=== PATIENT | male | born 1950 | race Caucasian/White ===

== ENCOUNTER → 2017-12-22 | Outpatient (CLI) | payer OTHER | LOC: FIMAGING 09:10 → EDSTATUS 09:11 | PROVIDERS: ATTEND Family Medicine | DX: M25.531 Pain in right wrist (principal) ==

== ENCOUNTER 2019-01-24 06:59 | Inpatient (IN) | payer OTHER ==
--- NOTE | 2019-01-24 07:05 | EDPHY ---
H & P Time Seen by Provider: 01/24/19 07:05 HPI/ROS: CHIEF COMPLAINT: Chest tightness HISTORY OF PRESENT ILLNESS: 68-year-old man had a history of coronary artery bypass grafting 12 years ago. Last Thursday he went to [place] in [facility] and felt chest tightness and indigestion walking up hill. No symptoms over the weekend and then this morning at 5:00 a.m. He did a little light exercise with dancing and noticed chest tightness across the anterior portion of his chest which resolved immediately when he stops moving. He tried again and the symptoms reoccurred and he stopped and they went away. On walking in from the car to the ED he noticed the symptoms of chest tightness reoccurred and right now they are almost gone. Not associated with radiation or neck or jaw or back pain or shortness of breath or nausea or vomiting. REVIEW OF SYSTEMS: Eye: no change in vision ENT: no sore throat Cardiac: HPI Pulmonary: Chronic cough after blood pressure medication many years ago Abdomen: no vomiting, diarrhea, abdominal pain Musculoskeletal: no back pain Skin: no rash Neuro: no headache Constitutional: no fever : no urinary symptoms A comprehensive 10 point review of systems is otherwise negative aside from elements mentioned in the history of present illness. PAST MEDICAL HISTORY: Appendectomy, coronary artery bypass grafting Social history: [facility] General Appearance: Alert and conversant, cooperative. Eyes: No scleral icterus. ENT, Mouth: Normal mucous membranes. Respiratory: Normal respiratory effort, breath sounds equal, lungs are clear to auscultation. Cardiovascular: Regular rate and rhythm. No murmur. Gastrointestinal: Abdomen is soft and non tender. Neurological: Alert, face symmetric, normal motor and sensory in extremities. Skin: Warm and dry, no rashes. Musculoskeletal: No peripheral edema. No calf tenderness. Psychiatric: Not agitated. Emergency Department course/MDM: 12-lead EKG interpreted by me; official reading is in computer system. My interpretation is sinus rhythm rate [address]-elevation in lead 3 only with inverted T-waves in leads 1 and aVL. Plan for troponin, he took an oral 324 aspirin this morning, cardiology consultation. High suspicion for ACS. Differential diagnosis considered for chest pain including but not limited to myocardial ischemia, aortic dissection, pericarditis, pulmonary embolus, chest wall pain, pleural inflammation and pulmonary infectious causes. Discussed with Carlos for cardiology 735am including EKG and troponin elevated to 0.38; Requests NTG and heparin. Nitroglycerin and heparin drips started in the emergency department. 848: Adal and cath team here to evaluate patient. Smoking Status: Never smoked Constitutional: Initial Vital Signs Temperature (C) 36.4 C 01/24/19 07:02 Heart Rate 52 L 01/24/19 07:02 Respiratory Rate 18 01/24/19 07:02 Blood Pressure 174/83 H 01/24/19 07:02 O2 Sat (%) 95 01/24/19 07:02 O2 Delivery Mode Room Air Allergies/Adverse Reactions: amlodipine [From [facility]] Allergy (Verified 01/24/19 08:37) whole body rash amoxicillin Allergy (Verified 01/24/19 08:37) whole body rash Home Medications: Medication Instructions Recorded Aspirin [Aspirin 81mg (*)] 81 mg PO DAILY 01/24/19 Dutasteride [Avodart 0.5 MG (*)] 0.5 mg PO DAILY 01/24/19 Herbals/Supplements -Info Only 1 ea PO DAILY 01/24/19 Losartan Potassium [Cozaar 25 mg 25 mg PO DAILY 01/24/19 (*)] Metoprolol Tartrate [Lopressor 25 25 mg PO DAILY 01/24/19 mg (*)] Medical Decision Making - Diagnostics Imaging Results: Imaging Impressions Chest X-Ray 01/24/19 07:15 Impression: Clear lungs. No acute process. Chest x-ray personally interpreted shows sternal wires consistent with previous bypass otherwise negative acute. Imaging: I viewed and interpreted images myself Differential Diagnosis: Differential diagnosis considered for chest tightness including but not limited to myocardial ischemia, aortic dissection, pericarditis, pulmonary embolus, chest wall pain, pleural inflammation and pulmonary infectious causes. Consult/Admit Bed Type: [facility] Carlos 736 Critical Care Time: Critical care time spent by me, Dr. Easley, exclusively with the care of this patient was 30 minutes, exclusive of PA or BAND CUTTER time and exclusive of separate procedures. The organ system at risk was cardiovascular and I ordered specialist consultation, multiple diagnostics, IV heparin and nitroglycerin to stabilize the patient and prevent worsening of the patient's condition. - Data Points Laboratory Results: Laboratory Results 01/24/19 07:15 01/24/19 07:15 01/24/19 01/24/19 01/24/19 07:22 07:15 07:15 WBC RBC Hgb Hct MCV MCH MCHC RDW Plt Count MPV Neut % (Auto) Lymph % (Auto) [place] % (Auto) Eos % (Auto) Baso % (Auto) Nucleat RBC Rel Count Absolute Neuts (auto) Absolute Lymphs (auto) Absolute Monos (auto) Absolute Eos (auto) Absolute Basos (auto) Absolute Nucleated RBC Immature Gran % Immature Gran # Heparin Anti-Xa, Unfract Pending Sodium 139 mEq/L mEq/L (135-145) Potassium 4.6 mEq/L mEq/L (3.5-5.2) Chloride 105 mEq/L mEq/L (97-110) Carbon Dioxide 26 mEq/l mEq/l (22-31) Anion Gap 8 mEq/L mEq/L (6-14) BUN 21 mg/dL mg/dL (7-23) Creatinine 0.9 mg/dL mg/dL (0.7-1.3) Estimated GFR > 60 Glucose 102 mg/dL H mg/dL (70-100) Calcium 9.4 mg/dL mg/dL (8.5-10.4) POC Troponin I 0.38 ng/mL H ng/mL (0.00-0.08) 01/24/19 07:15 WBC 6.68 10^3/uL 10^3/uL (3.80-9.50) RBC 5.18 10^6/uL 10^6/uL (4.40-6.38) Hgb 16.7 g/dL g/dL (13.7-17.5) Hct 47.8 % % (40.0-51.0) MCV 92.3 fL fL (81.5-99.8) MCH 32.2 pg pg (27.9-34.1) MCHC 34.9 g/dL g/dL (32.4-36.7) RDW 12.6 % % (11.5-15.2) Plt Count 194 10^3/uL 10^3/uL (150-400) MPV 9.5 fL fL (8.7-11.7) Neut % (Auto) 54.0 % % (39.3-74.2) Lymph % (Auto) 29.6 % % (15.0-45.0) [place] % (Auto) 13.0 % % (4.5-13.0) Eos % (Auto) 2.2 % % (0.6-7.6) Baso % (Auto) 0.6 % % (0.3-1.7) Nucleat RBC Rel Count 0.0 % % (0.0-0.2) Absolute Neuts (auto) 3.60 10^3/uL 10^3/uL (1.70-6.50) Absolute Lymphs (auto) 1.98 10^3/uL 10^3/uL (1.00-3.00) Absolute Monos (auto) 0.87 10^3/uL H 10^3/uL (0.30-0.80) Absolute Eos (auto) 0.15 10^3/uL 10^3/uL (0.03-0.40) Absolute Basos (auto) 0.04 10^3/uL 10^3/uL (0.02-0.10) Absolute Nucleated RBC 0.00 10^3/uL 10^3/uL (0-0.01) Immature Gran % 0.6 % % (0.0-1.1) Immature Gran # 0.04 10^3/uL 10^3/uL (0.00-0.10) Heparin Anti-Xa, Unfract Sodium Potassium Chloride Carbon Dioxide Anion Gap BUN Creatinine Estimated GFR Glucose Calcium POC Troponin I Medications Given: Discontinued Medications Heparin Sodium (Porcine) (Heparin Injection) 0 unit IVP EDNOW ONE Stop: 01/24/19 07:39 Last Admin: 01/24/19 07:57 Dose: 4,000 unit Heparin Sodium (Porcine) (Heparin 50 Units/Ml (Premix)) 500 mls @ 0 mls/hr IV EDNOW ONE; Per Protocol PRN Reason: Protocol Stop: 01/24/19 07:39 Last Admin: 01/24/19 07:56 Dose: 500 mls Nitroglycerin/Dextrose (Nitroglycerin 200 Mcg/Ml (Premix)) 250 mls @ 0 mls/hr IV CONT ONE; Titrate PRN Reason: Protocol Stop: 01/24/19 07:38 Last Admin: 01/24/19 08:00 Dose: 250 mls Point of Care Test Results: Chemistry 01/24/19 07:22 POC Troponin I 0.38 ng/mL H ng/mL (0.00-0.08) Departure - Departure Disposition: [facility] Clinical Impression: Acute coronary syndrome Condition: Serious
--- NOTE | 2019-01-24 07:15 | CPEKG ---
Test Reason : OPEN Blood Pressure : / mmHG Vent. Rate : 050 BPM Atrial Rate : 050 BPM P-R Int : 210 ms QRS Dur : 090 ms QT Int : 439 ms P-R-T Axes : 022 032 108 degrees QTc Int : 401 ms Sinus rhythm Repol abnrm suggests ischemia, lateral leads Borderline ST elevation, inferior leads Confirmed by Gus Easley ([id number]) on 01/24/2019 7:15:27 AM Referred By: Gus Easley Confirmed By:Gus Easley
[2019-01-24 07:29] LABS: PLATELET COUNT 194 10^3/uL (150-400)
[2019-01-24] MEDS ORDERED: HEPARIN/DEXTROSE 25,000 UNIT/500 ML BAG ONE (07:37)
[2019-01-24] MEDS ORDERED: NITROGLYCERIN/DEXTROSE 250 ML IV ONE (07:37)
[2019-01-24] MEDS ORDERED: HEPARIN/DEXTROSE 500 ML IV ONE (07:38)
[2019-01-24] MEDS ORDERED: HEPARIN 10,000 UNIT/10 ML MDV (1,000 UNIT/ML) IVP ONE (07:38)
[2019-01-24] MEDS ORDERED: HEPARIN 10,000 UNIT/10 ML MDV (1,000 UNIT/ML) IVP PRN (08:40)
[2019-01-24] MEDS ORDERED: HEPARIN/DEXTROSE 500 ML IV SCH (08:45)
[2019-01-24] MEDS ORDERED: fentaNYL 100 MCG/2 ML INJ ONE (08:53)
[2019-01-24] MEDS ORDERED: MIDAZOLAM 2 MG/2 ML VIAL ONE (08:53)
[2019-01-24] MEDS ORDERED: ACETAMINOPHEN 325 MG TAB PO PRN (08:54)
[2019-01-24] MEDS ORDERED: ONDANSETRON 4 MG/2 ML VIAL IVP PRN (08:54)
[2019-01-24] MEDS ORDERED: LIDOCAINE 1% 300 MG/30 ML SDV ONE (08:59)
[2019-01-24] MEDS ORDERED: NITROGLYCERIN/DEXTROSE 250 ML IV SCH (09:00)
[2019-01-24] MEDS ORDERED: METOPROLOL TARTRATE 25 MG TAB PO SCH (09:00)
[2019-01-24] MEDS ORDERED: HEPARIN 10,000 UNIT/10 ML MDV (1,000 UNIT/ML) ONE (09:22)
[2019-01-24] MEDS ORDERED: IOPAMIDOL (ISOVUE 370) 100 ML BTL IV ONE ×3 (09:35→10:12)
[2019-01-24] MEDS ORDERED: BIVALIRUDIN 250 MG/5 ML VIAL IV ONE (09:49)
[2019-01-24] MEDS ORDERED: NITROGLYCERIN 1,500 MCG/15 ML VIAL MISC ONE (10:02)
[2019-01-24] MEDS ORDERED: CLOPIDOGREL BISULFATE 75 MG TAB ONE (10:29)
[2019-01-24] MEDS ORDERED: CLOPIDOGREL BISULFATE 75 MG TAB PO ONE (10:41)
[2019-01-24] MEDS ORDERED: ATROPINE SULFATE 1 MG/10 ML SYR IVP PRN (10:41)
[2019-01-24] MEDS ORDERED: NS 1,000 ML IV SCH (10:45)
--- NOTE | 2019-01-24 10:49 | PDCARCONS ---
Cardiology Consult Reason for Consult: Acute coronary syndrome Chief Complaint: Chest tightness Requesting Physician: shelbie History of Present Illness: 68-year-old male history of coronary disease status post bypass grafting in 2006. Coronary angiogram done several months after initial bypass surgery showed patent mammary artery to the LAD and a patent skip graft to the diagonal and distal right coronary with proximal RCA graft disease. He has been treated medically since that time. 1 month ago he had an episode of myalgias. His statin was stopped. 2 weeks ago he began experiencing exertional chest tightness. This initially occurred with hiking. Began to increase in frequency at lower workload. This morning he had discomfort with gentle walking. He came to the emergency department. Initial EKG showed ST elevation inferior lead associated with an elevation in troponin. The patient was pain- free. I am asked to comment on further evaluation and treatment. Baseline EKG today showed sinus rhythm at 50 beats per minute. There is borderline ST elevation 2 3 and AVF with reciprocal ST depression 1 in aVL. On my arrival the patient is currently pain-free. He denies PND orthopnea. He has had no palpitations syncope or near syncope. Risk include hyperlipidemia and hypertension History Information - Allergies/Home Medication List Allergies/Adverse Reactions: amlodipine [From [facility]] Allergy (Verified 01/24/19 08:37) whole body rash amoxicillin Allergy (Verified 01/24/19 08:37) whole body rash Home Medications: Aspirin [Aspirin 81mg (*)] 81 mg PO DAILY 01/24/19 [Last Taken 01/24/19 06:00 324mg] Dutasteride [Avodart 0.5 MG (*)] 0.5 mg PO DAILY 01/24/19 [Last Taken 01/24/19] Herbals/Supplements -Info Only 1 ea PO DAILY 01/24/19 [Last Taken Unknown] Losartan Potassium [Cozaar 25 mg (*)] 25 mg PO DAILY 01/24/19 [Last Taken ] Metoprolol Tartrate [Lopressor 25 mg (*)] 25 mg PO DAILY 01/24/19 [Last Taken ] I have personally reviewed and updated: family history, medical history, social history, surgical history Past Medical History: - Past Medical History coronary artery disease, hypertension, hyperlipidemia - Surgical History Reports: coronary bypass surgery - Family History Positive for: non-pertinent - Social History Smoking Status: Never smoked Cardiac History - Cardiac History Cardiac Risk Factors: hypertension (>140/90), lipidemia Timing/Duration: Days Severity: moderate Severity Scale: 8 Location: substernal Activities at Onset: activity Modifying Factors: improves with: rest MICHAELA Risk Evaluation age greater or equal to 65: yes greater or equal to 3 CAD risk factors: yes known CAD(stenosis greater or eqaul to 50%): yes ASA use in past 7 days: yes severe angina(greater or equal to 2 episodes in 24hrs): yes EKG ST changes greater or equal to 0.5mm: yes positive cardiac marker: yes Total Score: 8 Physical Exam Physical Exam: Temp Pulse Resp BP Pulse Ox 36.8 C 53 L 14 147/76 H 95 01/24/19 08:54 01/24/19 08:54 01/24/19 08:54 01/24/19 08:54 01/24/19 08:54 Constitutional: no apparent distress Eyes: PERRL Ears, Nose, Mouth, Throat: moist mucous membranes Cardiovascular: regular rate and rhythym, no murmur, rub, or gallop, No systolic murmur, No diastolic murmur Peripheral Pulses: 1+: carotid (R), 2+: femoral (R), femoral (L) Respiratory: no respiratory distress, no rales or rhonchi Gastrointestinal: normoactive bowel sounds, soft, non-tender abdomen, no palpable masses Genitourinary: no bladder tenderness Skin: warm, normal color, No rash Musculoskeletal: full muscle strength Neurologic: AAOx3, No facial droop Psychiatric: interacting appropriately Lymph, Heme, Immunologic: no cervical LAD, no supraclavicular LAD Lab and Imaging 01/24/19 07:15 01/24/19 07:15 WBC 6.68 10^3/uL (3.80-9.50) 01/24/19 07:15 RBC 5.18 10^6/uL (4.40-6.38) 01/24/19 07:15 Hgb 16.7 g/dL (13.7-17.5) 01/24/19 07:15 Hct 47.8 % (40.0-51.0) 01/24/19 07:15 MCV 92.3 fL (81.5-99.8) 01/24/19 07:15 MCH 32.2 pg (27.9-34.1) 01/24/19 07:15 MCHC 34.9 g/dL (32.4-36.7) 01/24/19 07:15 RDW 12.6 % (11.5-15.2) 01/24/19 07:15 Plt Count 194 10^3/uL (150-400) 01/24/19 07:15 MPV 9.5 fL (8.7-11.7) 01/24/19 07:15 Neut % (Auto) 54.0 % (39.3-74.2) 01/24/19 07:15 Lymph % (Auto) 29.6 % (15.0-45.0) 01/24/19 07:15 [place] % (Auto) 13.0 % (4.5-13.0) 01/24/19 07:15 Eos % (Auto) 2.2 % (0.6-7.6) 01/24/19 07:15 Baso % (Auto) 0.6 % (0.3-1.7) 01/24/19 07:15 Nucleat RBC Rel Count 0.0 % (0.0-0.2) 01/24/19 07:15 Absolute Neuts (auto) 3.60 10^3/uL (1.70-6.50) 01/24/19 07:15 Absolute Lymphs (auto) 1.98 10^3/uL (1.00-3.00) 01/24/19 07:15 Absolute Monos (auto) 0.87 10^3/uL (0.30-0.80) H 01/24/19 07:15 Absolute Eos (auto) 0.15 10^3/uL (0.03-0.40) 01/24/19 07:15 Absolute Basos (auto) 0.04 10^3/uL (0.02-0.10) 01/24/19 07:15 Absolute Nucleated RBC 0.00 10^3/uL (0-0.01) 01/24/19 07:15 Immature Gran % 0.6 % (0.0-1.1) 01/24/19 07:15 Immature Gran # 0.04 10^3/uL (0.00-0.10) 01/24/19 07:15 Heparin Anti-Xa, Unfract < 0.10 IU/mL (0.32-0.67) L 01/24/19 07:15 Sodium 139 mEq/L (135-145) 01/24/19 07:15 Potassium 4.6 mEq/L (3.5-5.2) 01/24/19 07:15 Chloride 105 mEq/L (97-110) 01/24/19 07:15 Carbon Dioxide 26 mEq/l (22-31) 01/24/19 07:15 Anion Gap 8 mEq/L (6-14) 01/24/19 07:15 BUN 21 mg/dL (7-23) 01/24/19 07:15 Creatinine 0.9 mg/dL (0.7-1.3) 01/24/19 07:15 Estimated GFR > 60 01/24/19 07:15 Glucose 102 mg/dL (70-100) H 01/24/19 07:15 Calcium 9.4 mg/dL (8.5-10.4) 01/24/19 07:15 POC Troponin I 0.38 ng/mL (0.00-0.08) H 01/24/19 07:22 EKG Interpretation: Positive for: ST elevation A/P Assessment: 68year-old male known coronary disease history of bypass grafting in 2006, clear history of crescendo unstable angina now with ST elevation 2 3 and AVF with reciprocal ST depression in 1 aVL consistent with an acute coronary syndrome. Patient is currently pain-free on heparin. Troponin is elevated supporting diagnosis. Patient is currently stable without heart failure symptoms. He has stable vital signs. Recommendations are for urgent diagnostic angiogram with potential intervention. Suspect inferior or lateral wall as culprit. Will need to readdress secondary prevention. This would include aggressive statin therapy on top of his current beta-ezio and ARB. Continue aspirin. Clinical follow-up post diagnostic angiogram. Plan: Angiography with possible intervention. Review of Systems Review of Systems: - Review of Systems Constitutional: no symptoms reported EENTM: no symptoms reported Respiratory: no symptoms reported Cardiac: chest pain. denies: edema, irregular heart rate, lightheadedness, palpitations, syncope Gastrointestinal/Abdominal: no symptoms reported Genitourinary: no symptoms Musculoskelatal: no symptoms Skin: no symptoms Neurological: no symptoms Hematologic/Lymphatic: no symptoms reported Immunologic/allergic: no symptoms reported
--- NOTE | 2019-01-24 10:58 | PDDXCAT ---
Diagnostic Cath Note - . Date: 01/24/19 Service Delivery Consultant: Adal Indication: other (STEMI) - Procedure Access: right groin Procedure: left heart catheterization, coronary angiography, left ventriculogram , vein graft injection, DUNBAR injection - Materials Left Heart Cath size: 6F Left Heart Cath materials: standard multipack (JL4, JR4, pigtail), other (LCB) - Findings-Left Heart Catheterization LM: Unobstructed LAD: 100% occluded LCX: Diffuse proximal irregularities of up to 50%. Obtuse marginal branch that bifurcates. Distal limb subtotal stenosis with MICHAELA grade 2 flow. Proximal limb is tented with antegrade flow. AV groove portion widely patent with left- to-right filling of the distal right coronary RCA: 100% occluded rSVG: Widely patent to the diagonal DUNBAR: Widely patent to the LAD EDP: 18 mm of mercury post PCI LVEF: 70% Wall motion: No regional wall motion abnormalities. Complications: Ventricular fibrillation with injection of the saphenous vein graft. Estimated blood loss: <50ml Closure method: Angioseal Assessment: Severe [place] 3 vessel coronary artery disease. Patent mammary artery to the LAD. Patent vein graft to the diagonal. Progressive vein graft disease with occlusion of the vein graft to the distal right coronary. Acute coronary syndrome with critical stenosis of the lower limb of the obtuse marginal branch with MICHAELA grade 2 flow. Preserved LV systolic function post PCI. Plan: Emergency PCI. Intervention: Procedure: Cardioversion for polymorphic VT. PCI and stenting of the obtuse marginal branch. During the diagnostic angiogram saphenous vein graft to the diagonal was injected. Patient developed torsade. Brief CPR was performed with delivery of a single shock restoring sinus rhythm. After completion of the diagnostic procedure elected to proceed with urgent PCI. Patient was anticoagulated with Angiomax. Therapeutic ACT was confirmed. Using a 6 Chinese EBU 3.5 guiding catheter left main coronary selectively intubated. Guiding shots were performed. Using a 0.014 luge wire the circumflex artery was entered the wire placed in the distal limb of the obtuse marginal branch. Initial predilatation of the lesion was performed with a 2 mm balloon x2. Repeat angiogram showed MICHAELA grade 3 flow. Elected proceed with stenting. A 2.25 by 20 mm synergy stent was placed across the lesion. Position was confirmed. The stent was deployed using a single inflation. Stent balloon was used to post dilate the stent. Repeat angiograms revealed MICHAELA grade 0-1 flow. Patient was administered intracoronary nitroglycerin. There was re-establishment of MICHAELA grade 3 flow. Was elective seated with a proximal stent covering the entire body of the circumflex. A 2.5 x 32 mm synergy was placed. Overlapping the distal stent edges. Stent was deployed using a single inflation. Repeat angiogram showed MICHAELA grade 3 flow. Attempts were made to post dilate the stent with a 3 mm noncompliant balloon. The stent would not go distally. Danis wires were used including a Mailman and a Prowater J. The balloon would not cross. Both wires prolapsed out of the coronary. The stent was rewired with the Prowater J-wire. The 3.0 noncompliant balloon then easily crossed 2 inflations were performed fully post dilating the stent. Repeat angiogram showed MICHAELA grade 3 flow. The wires were withdrawn. Left ventricular angiography was performed. The sheath was removed with an Angio-Seal. Pressure dressings applied the patient is taken to recovery for continued care. On discharge from the microbiology laboratory manager he was pain-free. Conclusions: Acute coronary syndrome associated with ST elevation in the inferior lateral leads status post successful PCI and stenting of the obtuse marginal branch. Preserved LV systolic function with severe progressive three-vessel coronary artery disease Recommend aggressive secondary prevention goal LDL cholesterol less than 70 mg/ dL. Continue dual antiplatelet therapy. Beta-ezio, ARB, high-dose statin. Patient Problems: Problems Problem Status Onset Acute coronary syndrome Acute
[2019-01-24] MEDS: ASPIRIN 81 MG CHEWABLE TAB PO SCH (11:49)
[2019-01-24 13:06] LABS: CREATINE KINASE 141 IU/L (0-224)
[2019-01-24] MEDS: DUTASTERIDE 0.5 MG CAP PO SCH (13:36)
[2019-01-24] MEDS: LOSARTAN POTASSIUM 25 MG TAB PO SCH (13:37)
--- NOTE | 2019-01-24 14:18 | PDMN ---
Medical Necessity Medical necessity: MCG M230 AR, 2 days: 77 yo w/ chest discomfort, eval reveals STEMI w/ elevated troponin. Urgent heart cath shows severe [place] 3 vessel CAD. Admit IP status.
--- NOTE | 2019-01-24 14:44 | GHP ---
[f rep st] HISTORY AND PHYSICAL DATE OF ADMISSION: 01/24/2019 CHIEF COMPLAINT: Chest pain. HISTORY: Sal is a 68-year-old male with a history of coronary artery disease, status post CABG i n 2006. Last week, he was hiking. When going up a hill, he noticed some chest tightness. This reso lved with rest. He had recurrence of chest pain this morning approximately 5:00 am. This was while he was working out. Onset with exertion, better with rest. Just coming into the ER walking to the c ar, he noticed recurrence of chest pain with exertion. Still relieved with rest. He denies any rest pain. I am seeing him post cardiac catheterization. He was found to have ST-elevation in the emerg ency room. Was brought to [facility] where a stent was placed to the obtuse marginal. Post-procedural ly, he is doing well with no chest pain. Currently lying flat per protocol. PAST MEDICAL HISTORY: 1. Coronary disease, status post CABG 2006. 2. Hypertension. 3. Hyperlipidemia. 4. BPH. PAST SURGICAL HISTORY: Appendectomy. MEDICATIONS: Please see computerized record for full detailed list. ALLERGIES: To amlodipine amoxicillin and Lipitor recently caused muscle pain and weakness and was ju st stopped 2 weeks ago. SOCIAL HISTORY: No smoking. No alcohol. He lives with his . He is a retired officer. REVIEW OF SYSTEMS: Complete review of systems obtained. Review of systems negative regarding consti tutional, HEENT, GI, pulmonary, cardiovascular, , hematology, skin, muscle, endocrine, psych except for positives as in HPI. FAMILY HISTORY: Positive in his father. His father developed angina in his 40s. Had a massive MN a t age 69. PHYSICAL EXAMINATION: GENERAL: Well-developed, well-nourished male, in no acute distress. VITAL SI GNS: Temperature is 36.4, pulse 49, blood pressure 168/82, saturating 95% on room air. HEENT: Eye examination normal conjunctivae. Pupils react to light. ENT: Normal ears and nose. Hearing intact. Normal teeth. Oropharynx moist. NECK: Trachea midline. No thyromegaly. CHEST: Normal. LUNGS: Clear to auscultation bilaterally. CARDIOVASCULAR: Regular rate and rhythm. No murmur. No extre mity edema. ABDOMEN: Soft, nontender. No hepatosplenomegaly. SKIN: Warm, dry, intact. No rash. MUSCULOSKELETAL: No cyanosis or clubbing. Strength 5/5, upper and lower extremities. NEUROLOGIC: Cranial nerves intact. Normal sensation to light touch. PSYCH: Alert and oriented x3. Normal aff ect. Normal judgment. Normal memory. LABORATORY DATA: White count 6.68, hematocrit 47.8, platelets 194. Sodium 139, potassium 4.6, chlor stephen 105, bicarb 26, BUN 21, creatinine 0.9. Glucose 102, troponin 0.38. EKG viewed by me. My perso nal interpretation is ST-elevation in 3 and AVF. Chest x-ray is negative. ASSESSMENT/PLAN: 1. ST-elevation MN status post cardiac catheterization. He received a stent to the OM branch. He w ill need dual anti-platelet therapy with aspirin, Plavix for 1 year. 2. Hyperlipidemia. His Lipitor was recently stopped due to myalgias and muscle weakness. These sym ptoms resolved within days of stopping the Lipitor. He is willing to try an alternative statin drug. Dr. Galeas has started pravastatin. 3. Hypertension. Continue metoprolol and losartan. Watch pulse with metoprolol as he presents rela tively bradycardic. 4. BPH. Continue Avodart. CODE STATUS: Full. ADMISSION STATUS: 1. Will admit to inpatient as I anticipate greater than 2 midnights required for stabilization. 2. DVT prophylaxis. He is low risk. /[id number]/MODL
[2019-01-24 15:19] LABS: CREATINE KINASE 146 IU/L (0-224)
[2019-01-24 18:48] LABS: CREATINE KINASE 152 IU/L (0-224)
[2019-01-24 20:52] LABS: CREATINE KINASE 134 IU/L (0-224)
[2019-01-24] MEDS: METOPROLOL TARTRATE 25 MG TAB PO SCH (20:59)
[2019-01-25 05:27] LABS: PLATELET COUNT 180 10^3/uL (150-400)
[2019-01-25 06:08] LABS: CREATINE KINASE 106 IU/L (0-224)
[2019-01-25] MEDS ORDERED: CLOPIDOGREL BISULFATE 75 MG TAB PO SCH (09:00)
[2019-01-25] MEDS ORDERED: PRAVASTATIN SODIUM 40 MG TAB PO SCH (09:00)
[2019-01-25] MEDS: METOPROLOL TARTRATE 25 MG TAB PO SCH (09:32)
[2019-01-25] MEDS: LOSARTAN POTASSIUM 25 MG TAB PO SCH (09:33)
[2019-01-25] MEDS: DUTASTERIDE 0.5 MG CAP PO SCH (09:33)
[2019-01-25] MEDS: ASPIRIN 81 MG CHEWABLE TAB PO SCH (09:33)
[2019-01-25] MEDS ORDERED: LOSARTAN POTASSIUM 25 MG TAB PO ONE (10:00)
--- NOTE | 2019-01-25 10:02 | PDDCSUM ---
Discharge Summary Discharge Summary: Date of admission 01/24/2019 Date of discharge 01/25/[address] segment elevation myocardial infarction Discharge diagnosis ST segment elevation myocardial infarction status post PCI and stenting of the circumflex artery, hyperlipidemia, hypertension. Procedures during this hospitalization left heart catheterization coronary ventricular angiography PCI and stenting. Echocardiography Consultation: Internal medicine Dr. Zuniga. Cardiology Dr. Galeas Follow-up: Primary care Dr. Whittington, cardiology Dr. Galeas, cardiac rehabilitation Hospital course: 68-year-old male admitted through the emergency department with acute coronary syndrome. He has taken to the cardiac catheterization lab where he was found have critical stenosis of the circumflex artery. She underwent successful PCI and stenting. Cardiac enzymes suggested acute injury which is improving. LV function was normal by cardiac catheterization. He had a patent mammary artery to the LAD and a patent vein graft to the diagonal with complete occlusion of his right coronary fed by collaterals. Blood pressure was well controlled. He was started on Pravachol for hyperlipidemia. He is continued on dual antiplatelet therapy. On examination today blood pressure was 150/90, puncture site was healing well with mild ecchymosis. There was no bruit or thrill. He had a regular rate and rhythm without gallop. His lungs were clear. He had no JVP at 90 degrees. His abdomen was soft. Extremities revealed no edema. His EKG showed sinus rhythm with borderline inferior elevation in 2 3 and AVF with reciprocal changes in 1 aVL. Patient is discharged home on aggressive secondary prevention of be followed clinically. Medications were reviewed. Please see the attached form 17 for particulars. Questions were answered he is discharged home in stable condition.
--- NOTE | 2019-01-25 10:22 | ASDISCHSUM ---
Discharge Information Plan Status:Home with No Needs Medically Cleared to Leave:01/25/2019 Discharge Date:01/25/2019 CM D/C Disposition:Home, Routine, Self-Care ADT D/C Disposition: Projected Discharge Date:01/25/2019 Transportation at D/C: Discharge Delay Reason: Follow-Up Date:01/25/2019 Discharge Slot: Final Diagnosis: Placement Information Patient Contact Information Contact Name:JAILYNEMILY Relationship: Address:[address] Work Phone: City:[facility] Phone: State/Zip Code:[place] [address] Email: Financial Information Financial Class:Medicare Primary Plan Desc:MEDICARE INPATIENT Primary Plan Number:[id number] Secondary Plan Desc:[facility] Secondary Plan Number:[id number] Assessment Information LACE LACE Length of stay for Answers: 1 day current admission Acuity / Level of Answers: Yes Care: Did the patient have an inpatient admission? Comorbidities - select Answers: Coronary Artery Disease all that apply Other Notes: HTN; HLD # of Emergency department Answers: 1-2 visits in the last 6 months Score: 8 Date Signed: 01/25/2019 10:21 AM Electronically Signed By:Elvia Hatfield RN Intervention Information
[2019-01-25 10:55] VITALS: BP 140/86
--- NOTE | 2019-01-25 13:12 | ECHO ---
[email or web address] [address] [address] Main: [phone] Echocardiography Examination Transthoracic Name: ZHENG ROBERTS MR#: [id number] Study Date: 01/25/2019 Study Time: 09:37 AM Date of : 1950 Age: 68 year(s) Height: 170.2 cm (67 in.) Weight: 92.99 kg (205 lb.) BSA: 2.04 m2 Gender: Male Examination: Echo Contrast: Image Quality: Rhythm: Normal sinus rhythm Heart Rate: 63 bpm BP: 147 mmHg/67 mmHg Indication: Post Cath, Stents Procedure Staff Referring Physician: Emergency Crew Supervisor: Charly Gu RDCS Reading Physician: Zachary Gonzalez MD Requesting Provider: Ordering Physician: Shane Galeas MD Indication: Post Cath, Stents Measurements Chambers AV/MV Label Value Normal Value Label Value Normal Value LVOT Vmax 1.1 m/s (0.7m/s - 1.1m/s) AV PGmax 6 mmHg LVOTd 2.1 cm (1.9cm - 2.1cm) AV PGmean 3 mmHg LVOT VTI 26.5 cm (18cm - 22cm) AV Vmax 1.18 m/s LVDd, 2D 4.6 cm (4.2cm - 5.9cm) BEATRIZ (Vmax) 3.2 cm2 LVDs, 2D 2.9 cm (2.1cm - 4cm) BEATRIZ (VTI) 3.7 cm2 IVSd, 2D 1 cm (0.6cm - 1.1cm) MV E Vmax 0.5 m/s LVPWd, 2D 1.1 cm (0.6cm - 1cm) MV A Vmax 0.68 m/s LVEF, 2D 67 % (54% - 74%) MV E/A 0.74 LVOT PGmean 3 mmHg MV E/E' lateral 5.1 LVOT Vmean 0.81 m/s MV E/E' septal 8.3 (0.45 - 1.25) RVDd, 2D 2.6 cm (1.9cm - 3.8cm) MV E' septal 0.06 m/s LA Volume, BP 42 ml (18ml - 58ml) MV E' lateral 0.1 m/s LAESV index, BP 20.6 ml/m2 MV E/E' mean 6.25 Additional Vessels MV E' mean 0.08 m/s Label Value Normal Value TV/PV AoRoot, MM 3.1 cm (2.2cm - 3.7cm) Label Value Normal Value PV PGmax 5 mmHg PV Vmax, Caliper 1.14 m/s (0.6m/s - 0.9m/s) Patient: ZHENG ROBERTS Study Date: 01/25/2019 Page 1 of 3 09:37 AM Conclusions Left Ventricle: Left ventricle is normal in size. The EF is visually estimated to be 70 %. There is mild concentric left ventricular hypertrophy. There are no regional wall motion abnormalities. Grade I Diastolic Dysfunction. Right Ventricle: Right ventricular systolic function is normal. Mitral Valve: Mitral valve appears structurally normal. Aortic Valve: Aortic leaflets exhibit mild calcification. The aortic valve is trileaflet. Tricuspid Valve: No significant tricuspid regurgitation. Findings Left Ventricle: Left ventricle is normal in size. The EF is visually estimated to be 70 %. EF range is estimated at 65 % - 70 %. There is mild concentric left ventricular hypertrophy. There are no regional wall motion abnormalities. Grade I Diastolic Dysfunction. Right Ventricle: Normal size right ventricle. Right ventricular systolic function is normal. Left Atrium: The left atrium is normal in size. Right Atrium: The right atrium is normal in size. Mitral Valve: Mitral valve appears structurally normal. No significant mitral regurgitation. Aortic Valve: No significant aortic valve regurgitation. There is no aortic stenosis. Aortic leaflets exhibit mild calcification. The aortic valve is trileaflet. Tricuspid Valve: Tricuspid valve leaflets are normal in appearance and function. No significant tricuspid regurgitation. Pulmonic Valve: Pulmonic leaflets are normal in appearance and function. No pulmonic valve regurgitation is evident. Aorta: The aorta is normal. The aortic root size in M-mode measures 3.1 cm. Aorta Measurements AoRoot, MM is 3.1 cm. Pericardium: No pericardial effusion. Exam Details Procedure Ordered: Echo Patient: ZHENG ROBERTS Study Date: 01/25/2019 Page 2 of 3 09:37 AM (No Signature Object) Patient: ZHENG ROBERTS Study Date: 01/25/2019 Page 3 of 3 09:37 AM [id number]
[2019-01-26] MEDS ORDERED: LOSARTAN POTASSIUM 50 MG TAB PO SCH (09:00)
== END 2019-01-25 11:26 | disposition home or self-care (01) | DRG 247 ==
LOC: F2W 12:14
PROVIDERS: ADMIT Internal Medicine; ATTEND Internal Medicine Interventional Cardiology
DX: I21.19 ST elevation (STEMI) myocardial infarction involving other coronary artery of inferior wall (principal); I25.10 Atherosclerotic heart disease of native coronary artery without angina pectoris; I47.2 Ventricular tachycardia; I10 Essential (primary) hypertension; E78.5 Hyperlipidemia, unspecified; N40.0 Benign prostatic hyperplasia without lower urinary tract symptoms; Z95.1 Presence of aortocoronary bypass graft
CPT/HCPCS: 84484-ER; 85520-90; 96374; C1725; C1760; C1769; C1874; C1887; C9600; C9601; J0461; J0583; J1644; J2250; J3010; Q9967